=== PATIENT | female | born 1945 | race Caucasian/White ===

== ENCOUNTER → 2016-04-04 | Outpatient (CLI) | payer MEDICARE, OTHER ==
[~2016-04-04] MED LIST: CYCL5TAB PO; HYDR-3812 PO; PANT40VI7 IV; PRD20T PO
--- NOTE | 2016-04-05 09:17 | ECHOCARDIOGRAPHY REPORT ---
PROCEDURE PHYSICIAN: MT ADAM DATE OF PROCEDURE: 04/04/2016 TWO DIMENSIONAL ECHOCARDIOGRAM REPORT PRIMARY PHYSICIAN: OTHER PHYSICIAN: REFERRING PHYSICIAN: Dr. Ibrahim ORDERING PHYSICIAN: INDICATION FOR THE PROCEDURE: AV block, hypertension MEASUREMENTS DERIVED VALUES LV DIAMETER (LAX) NORMALS NORMALS Diastolic 3.8 (3.6-5.2) Eject. Fract. 60% (60%+/-6%) Systolic (2.3-3.9) Diastolic Vol. % Shortening (0.22-0.42) Systolic Vol. Aortic Root IVS THICKNESS Diastolic 0.8 (0.6-1.1) LVPW THICKNESS Diastolic 0.8 (0.6-1.1) LA DIAMETER Systolic 2.6 (2.1-3.7) FINDINGS: 1. Technical quality is good. 2. The left ventricle is normal in size with normal contractility. Systolic function appeared to be normal. Estimated ejection fraction 60%. 3. The left atrium is normal in size. No clot or thrombus were seen within the left atrium. 4. The right atrium and right ventricle are normal in size. No clot or thrombus were seen within the right side. 5. Mitral valve is normal in morphology with mild mitral regurgitation noted by color Doppler flow. No mitral valve prolapse. No mitral valve stenosis. 6. Aortic valve is trileaflet with normal opening and closing pattern. No significant aortic stenosis or regurgitation was seen. 7. Tricuspid valve is normal in morphology with mild tricuspid regurgitation noted by color Doppler flow. Doppler across tricuspid valve estimated pulmonary artery pressure of 24+ right atrial pressure. 8. Pulmonic valve is functioning normally. 9. No pericardial effusion. CONCLUSION: 1. Normal left ventricular size and systolic function. Estimated ejection fraction is 60%. 2. Mild mitral and tricuspid regurgitation. 3. Estimated pulmonary artery pressure of 30 mmHg. Job ID: [id number] Dictated Date: 04/04/2016 17:14:23 Legal Counsel Date: 04/05/2016 09:12:58 / kamilah
== END ==
LOC: CARD 13:02
PROVIDERS: ATTEND Internal Medicine Cardiovascular Disease
DX: I44.0 Atrioventricular block, first degree (principal); E78.2 Mixed hyperlipidemia
CPT/HCPCS: 93306

== ENCOUNTER → 2016-08-25 | Outpatient (CLI) | payer MEDICARE, OTHER ==
--- NOTE | 2016-08-28 14:02 | Diagnostic Imaging Report ---
Bilateral screening mammogram. The current study was also evaluated with a Computer Aided Detection (CAD) system. INDICATION: Screening. No current complaints stated on the questionnaire. COMPARISON: 08/19/2015. FINDINGS: The breasts are composed of heterogeneously dense parenchyma which may decrease mammographic sensitivity. There are benign-appearing calcifications. Allowing for technique and positional differences, no suspicious change is seen. IMPRESSION: No significant change. ACR BI-RADS Category 2: Benign findings. Result letter will be mailed to the patient. Note: At least 10% of breast cancer is not imaged by mammography. Dictated by: Dictated on workstation # [id number]
== END ==
LOC: RAD 10:12
PROVIDERS: ATTEND Nurse Practitioner Family
DX: Z12.31 Encounter for screening mammogram for malignant neoplasm of breast (principal)
CPT/HCPCS: 77067

== ENCOUNTER → 2017-02-20 | Outpatient (CLI) | payer MEDICARE, OTHER ==
[~2017-02-20] MED LIST changes: +IOHEXOL 350 MG/ML 100 ML (OMNIPAQUE 350) VIAL IV ONE; +NS 100 ML (IVPB) BAG IV ONE
--- NOTE | 2017-02-20 10:01 | Diagnostic Imaging Report ---
PROCEDURE: CT head with and without contrast. TECHNIQUE: Multiple contiguous axial images were obtained through the brain before and after the administration of intravenous contrast. INDICATION: Astrocytoma. Ventricular shunt. COMPARISON: CT head without and with IV contrast 02/10/2013. FINDINGS: There is a right frontal ventricular shunt which crosses midline with the tip in the anterior left lateral ventricle, near the foramen of Monro. This is stable compared to the 2012 examination. There are postoperative findings of a suboccipital craniotomy. Mild generalized cerebral and cerebellar parenchymal volume loss. No CT evidence of acute infarction. No intracranial hemorrhage, mass effect, hydrocephalus or extra axial fluid collections. No abnormal intracranial enhancement. No acute osseous findings. The visualized paranasal sinuses and mastoids are clear. IMPRESSION: 1. Stable exam including a right frontal ventriculoperitoneal shunt. 2. No acute intracranial CT findings. No abnormal intracranial enhancement. Dictated by: Dictated on workstation # [id number]
== END ==
LOC: RAD 08:33
PROVIDERS: ATTEND Nurse Practitioner Family
DX: Z09 Encounter for follow-up examination after completed treatment for conditions other than malignant neoplasm (principal); Z98.2 Presence of cerebrospinal fluid drainage device; Z86.011 Personal history of benign neoplasm of the brain
CPT/HCPCS: 70470

== ENCOUNTER → 2017-08-21 | Outpatient (CLI) | payer MEDICARE, OTHER ==
[~2017-08-21] MED LIST changes: +ACHD5005 PO; +GADOBUTROL 7.5 MMOL/7.5 ML (GADAVIST) VIAL IV ONE; -HYDR-3812 PO; -IOHEXOL 350 MG/ML 100 ML (OMNIPAQUE 350) VIAL IV ONE; -NS 100 ML (IVPB) BAG IV ONE
[2017-08-21 09:29] LABS: BUN/CREATININE RATIO 18; GFR ESTIMATED > 60
--- NOTE | 2017-08-21 20:01 | Diagnostic Imaging Report ---
PROCEDURE: MR imaging of the brain with and without contrast. INDICATION: Status post teeth cleaning on 07/12/2017. Left-sided mouth and facial pain with left-sided neck pain and posterior headache since. History of prior brain tumor and resection in 1984. TECHNIQUE: Multiplanar, multisequence MR imaging of the brain was performed with and without contrast. CORRELATION STUDY: CT head 02/20/2017. FINDINGS: A right frontal shunt tube is present coursing through the anterior horn of the right lateral ventricle just across midline. The ventricular system is decompressed. Metallic artifact likely owing to the shunt tubing over the right frontoparietal region is present. Surgical changes of apparent occipital craniotomy are noted. There are scattered areas of hyperintense T2 signal change. This is most pronounced at the left frontoparietal and extending into the posterolateral temporal lobe, predominantly in the white matter with sparing of the cortex. This likely corresponds to a previously noted low attenuating area on CT imaging. Additional area of signal change along the right frontal shunt tube is likely gliosis. There are no restricted areas of diffusion to suggest acute ischemia. No midline shift. Postcontrast imaging demonstrates no abnormal areas of intracranial enhancement. Craniocervical junction and midline structures including sella appear unremarkable. Normal expected intracranial flow voids. IMPRESSION: 1. Negative for acute intracranial abnormality. No evidence for acute ischemia. 2. Right frontal shunt tube present with the ventricular system decompressed and slit like. 3. Postop changes of a suboccipital craniotomy. 4. Asymmetric T2 signal change in the left frontal, parietal, and temporal region appearing likely generally stable. Dictated by: Dictated on workstation # [id number]
== END ==
LOC: RAD 08:36
PROVIDERS: ATTEND Nurse Practitioner Family
DX: R51 Headache (principal); Z98.2 Presence of cerebrospinal fluid drainage device; Z85.841 Personal history of malignant neoplasm of brain
CPT/HCPCS: 36415; 70553; 82565; 84520

== ENCOUNTER → 2018-04-23 | Outpatient (CLI) | payer MEDICARE, OTHER ==
--- NOTE | 2018-04-23 13:25 | Diagnostic Imaging Report ---
INDICATION: Routine screening. COMPARISON: 08/25/2016 and 08/19/2015. TECHNIQUE: 2D and 3D bilateral screening mammography was performed with CAD. FINDINGS: Both breasts remain heterogeneously dense, limiting the sensitivity of mammography. The parenchymal pattern is stable. Occasional benign calcifications are noted. No mass or malignant appearing microcalcifications are seen. The axillae are unremarkable. IMPRESSION: No mammographic features suspicious for malignancy are identified. ACR BI-RADS Category 2: Benign findings. Result letter will be mailed to the patient. Note: At least 10% of breast cancer is not imaged by mammography. Dictated by: Dictated on workstation # [id number]
== END ==
LOC: RAD 09:39
PROVIDERS: ATTEND Family Medicine
DX: Z12.31 Encounter for screening mammogram for malignant neoplasm of breast (principal)
CPT/HCPCS: 77067

== ENCOUNTER → 2018-07-09 | Outpatient (CLI) | payer MEDICARE, OTHER ==
[~2018-07-09] MED LIST changes: -GADOBUTROL 7.5 MMOL/7.5 ML (GADAVIST) VIAL IV ONE
--- NOTE | 2018-07-09 13:39 | Diagnostic Imaging Report ---
INDICATION: Screening for osteoporosis. COMPARISON: None. FINDINGS: The bone density of hips and spine was measured. There are no prior studies available for comparison. The T-score for the spine is -1.4. This does indicate osteopenia. The total T-score for the left hip is -2.1 and for the right hip -2.0. The T-score for the right femoral neck is -2.2. These values do indicate severe osteopenia. The T-score for the left femoral head and neck is -2.5. This does indicate borderline osteoporosis. AP Spine L1-L4: [BMD (g/cm2): 1.029] [T-Score: -1.4] [Z-Score: 0.7] [BMD Previous: 1.220] [BMD % Change: -15.7] LT Hip Neck: [BMD (g/cm2): 0.685] [T-Score: -2.5] [Z-Score: -0.5] LT Hip Total: [BMD (g/cm2):0.739] [T-Score:-2.1] [Z-Score: -0.3] [BMD Previous: 0.956] [BMD % Change: -22.7] RT Hip Neck: [BMD (g/cm2):0.736] [T-Score:-2.2] [Z-Score:-0.1] RT Hip Total: [BMD (g/cm2):0.750] [T-score:-2.0] [Z-Score:-0.2] [BMD Previous:0.944] [BMD % Change:-20.6] *Indicates significant change from prior examination based on 95% confidence level. World Health Organization criteria for BMD interpretation classify patients as Normal (T-score at or above -1.0), Osteopenic (T-score between -1.0 and -2.5) or Osteoporotic (T-score at or below -2.5). LIMITATIONS AND MODIFICATION: None. FRACTURE RISK (FRAX SCORE): The ten year probability of (%): Major Osteoporotic Fracture: [20.4] Hip Fracture: [6.2] IMPRESSION: 1. There is osteopenia of the spine and severe osteopenia of the hips. 2. There is also borderline osteoporosis of the left femoral neck. 3. See below National Osteoporosis Foundation guidelines on when to potentially initiate pharmacologic therapy. Based on the National Osteoporosis Foundation Guidelines, pharmacologic treatment should be initiated in any of the following, unless clinical conditions suggest otherwise: * Any patient with prior fragility fracture of the hip or vertebrae. A spine fracture indicates 5X risk for subsequent spine fracture and 2X risk for subsequent hip fracture. * Osteoporosis (T-score <-2.5). * Postmenopausal women and men age 50 and older with low bone mass/osteopenia (T-score between -1.0 and -2.5) by DXA and 10-year major osteoporotic fracture greater than 20% or a 10-year probability of hip fracture greater than 3%. These fracture risks are supplied above in the FRAX score, if applicable. * Clinician judgement and/or patient preferences may indicate treatment for people with 10-year fracture probabilities above or below these levels. Dictated by: Dictated on workstation # [id number]
== END ==
LOC: RAD 11:35
PROVIDERS: ATTEND Nurse Practitioner Primary Care
DX: M85.88 Other specified disorders of bone density and structure, other site (principal); Z13.820 Encounter for screening for osteoporosis; Z78.0 Asymptomatic menopausal state
CPT/HCPCS: 77080

== ENCOUNTER → 2019-04-24 | Outpatient (CLI) | payer MEDICARE, OTHER ==
--- NOTE | 2019-04-25 13:09 | Diagnostic Imaging Report ---
EXAM: Digital mammogram screening COMPARISON: 04/23/2018, 08/25/2016 and 08/19/2015. There are no current complaints. The fibroglandular tissue in both breasts is heterogeneously dense. This does limit the sensitivity of this exam. On the craniocaudad view of the right breast in the midportion of the breast, approximately 4 to 5 cm from the nipple, there is a 5.7 mm nodular density. This finding does seem to persist with tomographic images although it is difficult to identify with certainty on the MLO view. I would recommend that a compression view of this area be obtained in the CC projection as well as a true lateral view for further study. Ultrasound should also be performed. The left breast is unchanged. IMPRESSION: Additional mammographic views and ultrasound of the right breast would be recommended for further evaluation. ACR BI-RADS Category 0: Incomplete. (Needs additional imaging evaluation). Result letter will be mailed to the patient. Note: At least 10% of breast cancer is not imaged by mammography. Dictated by: Dictated on workstation # [id number]
== END ==
LOC: RAD 10:27
PROVIDERS: ATTEND Family Medicine
DX: Z12.31 Encounter for screening mammogram for malignant neoplasm of breast (principal)
CPT/HCPCS: 77067

== ENCOUNTER → 2019-05-07 | Outpatient (CLI) | payer MEDICARE, OTHER ==
--- NOTE | 2019-05-07 10:06 | Diagnostic Imaging Report ---
EXAMINATION: Unilateral diagnostic right mammogram with CAD. INDICATION: Abnormal screening mammogram. HISTORY: The recent screening mammogram performed on 04/24/2019 noted a 5.7 mm nodular density in the midportion of the right breast approximately 4 to 5 cm deep to the nipple. This is only visualized on the craniocaudad view. The compression view of this area shows that this density still seems to be present although it cannot be identified with certainty on the true lateral view or on the rolled views in the CC projection.. This may merely be related to fibroglandular tissue. Even so, I would recommend that ultrasound be performed for further study. IMPRESSION: Ultrasound would be recommended for further evaluation of the right breast. ACR BI-RADS Category 0: Incomplete. (Needs additional imaging evaluation). Result letter will be mailed to the patient. Note: At least 10% of breast cancer is not imaged by mammography. Dictated by: Dictated on workstation # [id number]
--- NOTE | 2019-05-07 10:14 | Diagnostic Imaging Report ---
EXAMINATION: Ultrasound right breast limited. FINDINGS: The diagnostic mammogram performed earlier today noted a small area of increased density in the midportion of the right breast. On this exam, there is a small 9 x 2 mm avascular hypoechoic area in the 11 o'clock position of the right breast 4 cm from the nipple. I am not certain if this finding corresponds to the density seen on the mammogram. This hypoechoic area is of uncertain etiology although most likely related to a benign process such as a duct or perhaps a small slightly complicated cyst. There are no solid masses to suggest malignancy. IMPRESSION: The small hypoechoic area in the 11 o'clock position of the right breast is of uncertain etiology although most likely benign. There is no evidence for malignancy. It may prove worthwhile, however, to have a short-term (6 month) followup mammogram and ultrasound exam of the right breast for continued evaluation. ACR BI-RADS Category 3: Probably benign findings. Dictated by: Dictated on workstation # [id number]
== END ==
LOC: RAD 08:32
PROVIDERS: ATTEND Nurse Practitioner Family
DX: R92.2 Inconclusive mammogram (principal)

== ENCOUNTER → 2019-12-08 | Outpatient (CLI) | payer MEDICARE, OTHER ==
--- NOTE | 2019-12-08 13:20 | Diagnostic Imaging Report ---
INDICATION: Six-month followup right breast density. Patient also complains of right breast tenderness today. Correlation is made with prior mammogram 05/07/2019, 04/24/2019 and 04/23/2018. Unilateral right 2-D and 3-D diagnostic mammography was performed with CAD. Right breast remains heterogeneous dense. Area of density in the central right breast CC view appears stable. No new mass or malignant appearing microcalcifications are seen. Right axilla is unremarkable. IMPRESSION: BI-RADS Category 0 Stable right mammogram. Even so, direct sonographic interrogation of the 11 o'clock location right breast is recommended and will be performed today. In addition, area of tenderness in the right breast will be evaluated with ultrasound. ACR BI-RADS Category 0: Incomplete. (Needs additional imaging evaluation). Result letter will be mailed to the patient. Note: At least 10% of breast cancer is not imaged by mammography. Dictated by: Dictated on workstation # [id number]
--- NOTE | 2019-12-08 15:06 | Diagnostic Imaging Report ---
INDICATION: Six-month followup of right breast nodule. Patient also describes pain in the lateral right breast. COMPARISON: Correlation is made with the diagnostic mammogram performed earlier this same day as well as prior right breast ultrasound from 05/07/2019. FINDINGS: Sonographic interrogation of the area of pain in the lateral right breast was performed. No sonographic abnormality is seen. In addition, the 11 o'clock location was evaluated. The previously noted questionable nodule at this location is not appreciated on today's exam. IMPRESSION: No sonographic abnormality is identified. Even so, a followup right mammogram in 6 months is recommended to show continued stability of central nodularity on the CC view. ACR BI-RADS Category 3: Probably benign findings. Dictated by: Dictated on workstation # [id number]
== END ==
LOC: RAD 12:59
PROVIDERS: ATTEND Family Medicine
DX: N63.10 Unspecified lump in the right breast, unspecified quadrant (principal)
CPT/HCPCS: 76642; 77065; G0279

== ENCOUNTER → 2020-07-09 | Outpatient (CLI) | payer MEDICARE, OTHER ==
--- NOTE | 2020-07-09 13:39 | Diagnostic Imaging Report ---
INDICATION: Six-month follow-up right breast density. CORRELATION is made prior mammograms dating back to 2019. 2-D and 3-D bilateral diagnostic mammography was performed with CAD. Both breasts remain heterogeneously dense, limiting the sensitivity of mammography. The density noted in the central right breast on the CC view on prior exams is much less prominent on today's study and most likely represents superimposed tissue. No mass or malignant appearing microcalcifications are seen. There are benign calculus locations present. Axillae are unremarkable. IMPRESSION: BI-RADS Category 2 No mammographic features suspicious for malignancy are identified. The right breast density previously seen is less prominent on today's study and most likely represents superimposed tissue. Follow-up bilateral screening mammography is recommended. ACR BI-RADS Category 2: Benign findings. Result letter will be mailed to the patient. Note: At least 10% of breast cancer is not imaged by mammography. Dictated by: Dictated on workstation # [id number]
== END ==
LOC: RAD 12:33
PROVIDERS: ATTEND Family Medicine
DX: N63.10 Unspecified lump in the right breast, unspecified quadrant (principal); N63.20 Unspecified lump in the left breast, unspecified quadrant
CPT/HCPCS: 77066; G0279; 77062

== ENCOUNTER → 2021-01-19 | Outpatient (CLI) | payer MEDICARE ==
--- NOTE | 2021-01-19 15:34 | Diagnostic Imaging Report ---
INDICATION: Back pain. Knee pain. COMPARISON: None. FINDINGS: Three views of the right knee joint demonstrate no acute fracture or dislocation. No focal osseous lesions are seen. No significant joint effusion is seen. The surrounding soft tissue structures are unremarkable. There are no radiopaque foreign bodies. IMPRESSION: No acute fractures or dislocations of the right knee joint. Dictated by: Dictated on workstation # [id number]
--- NOTE | 2021-01-19 15:35 | Diagnostic Imaging Report ---
INDICATION: Lower back pain. COMPARISON: None. FINDINGS: Frontal and lateral radiographic views of the lumbar spine were obtained. Evaluation of the static alignment shows mild to moderate reverse S-shaped scoliotic deformity of the lower thoracic and lumbar spine. The AP static alignment is preserved. There is no evidence of jumped facets. The vertebral body heights appear maintained as well. There is no convincing evidence of an acute fracture. Moderate multilevel degenerative changes are present consisting of intervertebral disc height loss with endplate sclerotic change and multilevel facet arthropathy. The included small bowel loops are nondistended. IMPRESSION: 1. No acute fracture or dislocation in the lumbar spine. 2. Scoliotic deformity with moderate multilevel degenerative changes. Dictated by: Dictated on workstation # [id number]
== END ==
LOC: RAD 14:08
PROVIDERS: ATTEND Family Medicine
DX: M47.26 Other spondylosis with radiculopathy, lumbar region (principal); M41.86 Other forms of scoliosis, lumbar region; M25.561 Pain in right knee
CPT/HCPCS: 72100; 73562

== ENCOUNTER 2021-03-02 13:40 | Outpatient (RCR) | payer MEDICARE | END 2021-03-04 | disposition home or self-care (01) | PROVIDERS: ATTEND Family Medicine | DX: M54.16 Radiculopathy, lumbar region (principal) ==

== ENCOUNTER 2021-03-31 08:57 | Outpatient (RCR) | payer MEDICARE | END 2021-04-04 | disposition home or self-care (01) | PROVIDERS: ATTEND Family Medicine | DX: M54.16 Radiculopathy, lumbar region (principal) ==

== ENCOUNTER → 2021-05-23 | Outpatient (CLI) | payer MEDICARE ==
[~2021-05-23] MED LIST changes: +CATHETER FLUSH 10 ML SYR IV PRN; +HOLD METFORMIN - RECEIVED CONTRAST 20 ML VIAL IV SCH; +IOHEXOL 350 MG/ML 100 ML (OMNIPAQUE 350) VIAL IV ONE; +NS 100 ML (IVPB) BAG IV ONE
--- NOTE | 2021-05-23 13:45 | Diagnostic Imaging Report ---
CLINICAL INDICATION: Patient has cephalgia and brain shunt. Patient has vision changes and had shunt placed in 1984 and there is a 2nd shunt. 2 1/2 months ago patient hit side of head. EXAM: Axial CT scan of the brain performed without IV contrast with sagittal and coronal reformatted images. Auto Exposure Controls were utilized during the CT exam to meet ALARA standards for radiation dose reduction. COMPARISON: MRI of the brain with and without contrast dated 08/21/[address] with and without contrast dated 02/20/2017. FINDINGS: Again seen ventricular shunt entering the right frontal region with tip crossing midline overlying the anterior aspect of left lateral ventricle. Ventricles are slitlike and are stable compared to the prior MRI of the brain. Stable small amount of low-density white matter changes adjacent to the shunt in the right frontal region. Old ventricular shunt tract craniotomy involving the right posterior aspect of the skull noted. There is small amount of curvilinear low density in the area of the right parietal lobe. There is no significant change to the confluence small amount of high T2 signal involving the subcortical and deep white matter of the posterior lateral left frontal lobe, left parietal lobe, and left temporal lobe region. There is no enhancing mass seen in the region. Occipital craniectomy changes with cranioplasty noted. There is no interval CT evidence of acute cerebral infarct, intracranial hemorrhage, brain herniation and midline shift. Basal cisterns are unremarkable. There is cranial soft tissue, skull, and orbits are unremarkable. Paranasal sinuses and mastoid air cells are clear. IMPRESSION: 1: Overall stable CT scan of the brain with no interval acute intracranial process. 2: Stable ventricular shunt entering the right frontal aspect of the brain with stable ventricle sizes and no evidence of interval hydrocephaly. 3.: Stable nonspecific small confluent area of high T2 signal involving the lateral left frontal, parietal, and temporal lobe region. 4: There are other postoperative changes which is not significantly changed, as described above. Dictated by: Dictated on workstation # [id number]
== END ==
LOC: RAD 13:15
PROVIDERS: ATTEND Family Medicine
DX: R51.9 Headache, unspecified (principal); H53.9 Unspecified visual disturbance; Z98.2 Presence of cerebrospinal fluid drainage device; Z98.890 Other specified postprocedural states
CPT/HCPCS: 70470

== ENCOUNTER → 2021-06-06 | Outpatient (CLI) | payer MEDICARE, OTHER ==
[~2021-06-06] MED LIST changes: -CATHETER FLUSH 10 ML SYR IV PRN; -HOLD METFORMIN - RECEIVED CONTRAST 20 ML VIAL IV SCH; -IOHEXOL 350 MG/ML 100 ML (OMNIPAQUE 350) VIAL IV ONE; -NS 100 ML (IVPB) BAG IV ONE
== END ==
LOC: CARD 10:30
PROVIDERS: ATTEND Physician Assistant
DX: I10 Essential (primary) hypertension (principal); I25.10 Atherosclerotic heart disease of native coronary artery without angina pectoris
CPT/HCPCS: 93306

== ENCOUNTER → 2021-07-29 | Outpatient (CLI) | payer MEDICARE, OTHER ==
--- NOTE | 2021-07-29 13:11 | Diagnostic Imaging Report ---
INDICATION: Routine screening. Comparison is made with prior mammogram 07/09/2020 and 04/24/2019. 2-D and 3-D bilateral screening mammography was performed with CAD. Both breasts are heterogeneously dense, limiting the sensitivity of mammography. The parenchymal pattern is stable. No mass or malignant-appearing microcalcifications are seen. There are occasional benign calcifications noted. The axillae are unremarkable. IMPRESSION: No mammographic features suspicious for malignancy are identified. ACR BI-RADS Category 2: Benign findings. Result letter will be mailed to the patient. Note: At least 10% of breast cancer is not imaged by mammography. BI-RADS Category 2 Dictated by: Dictated on workstation # [id number]
== END ==
LOC: RAD 11:00
PROVIDERS: ATTEND Family Medicine
DX: Z12.31 Encounter for screening mammogram for malignant neoplasm of breast (principal)
CPT/HCPCS: 77063; 77067

== ENCOUNTER → 2022-08-07 | Outpatient (CLI) | payer MEDICARE ==
--- NOTE | 2022-08-07 10:34 | Diagnostic Imaging Report ---
MRI LT UPPER EXT JOINT W/O Technique: Multiplanar, multisequence MR imaging of the left shoulder was performed without contrast. Comparison: None available. Indication: Left shoulder pain. Humeral fracture one month ago. Findings: Rotator cuff: The supraspinatus has a partial-thickness tear at its posterior aspect. Infraspinatus is intact upon a fragment of the greater tuberosity that has been fractured and elevated approximately 5 mm. The teres minor and subscapularis remain intact. No rotator cuff muscle atrophy. Glenoid labrum: No chondrolabral separation or paralabral cyst. Linear signal in the posterior aspect of the labrum may represent degenerative tearing. Long head of biceps: Long head of biceps is normally positioned within the bicipital groove. The intracapsular segment is intact. Bones and cartilage: Mildly impacted surgical neck fracture of the humerus has surrounding bone marrow edema. The fracture also involves the base of the greater tuberosity which is mildly elevated. No glenohumeral chondromalacia. The acromioclavicular joint is normal in alignment without significant degenerative change. Soft tissues: No glenohumeral joint effusion. No MRI findings to suggest adhesive capsulitis. Fluid is present in the subacromial and subdeltoid bursa. IMPRESSION: 1. Partial-thickness tear of the supraspinatus at its posterior insertion. 2. Infraspinatus is intact but inserts upon a fracture fragment of the greater tuberosity that is elevated approximately 5 mm. 3. Subacute proximal humeral fracture involves the surgical neck and greater tuberosity. Dictated by: Dictated on workstation # [id number]
== END ==
LOC: RAD 07:38
PROVIDERS: ATTEND Nurse Practitioner
DX: M75.112 Incomplete rotator cuff tear or rupture of left shoulder, not specified as traumatic (principal); S42.202A Unspecified fracture of upper end of left humerus, initial encounter for closed fracture; X58.XXXA Exposure to other specified factors, initial encounter
CPT/HCPCS: 73221

== ENCOUNTER 2022-08-23 16:40 | Emergency (ER) | payer MEDICARE ==
[~2022-08-23] VITALS: Ht 170 cm; Wt 51.7 kg
[2022-08-23] MEDS ORDERED: NS IV 1000 ML 1,000 ML IV STA ×2 (17:15→20:55)
[2022-08-23] MEDS ORDERED: ONDANSETRON 4 MG/2 ML (SDV) Z0FRAN IVP ONE (17:15)
--- NOTE | 2022-08-23 17:15 | ED General ---
General Chief Complaint: General Problems/Pain Stated Complaint: CONFUSION|UPSET STOMACH Nursing Triage Note: c/o increased confusion, shakyness, and nausea. started this afternoon. (GIOVANNI DIAZ DO) History of Present Illness Date Seen by Provider: Aug 23, 2022 Time Seen by Provider: 17:03 Initial Comments 76-year-old female presents with some severe nausea but no vomiting. Bit shaky. Patient has history of a brain tumor and has a shunt. Patient brought in by family friend. He reports that when she awoke from a nap she is currently confused but that has seemed to resolved now. No reports of fever or chills. (GIOVANNI DIAZ DO) Allergies and Home Medications Allergies Coded Allergies: No Known Drug Allergies (Unverified , 01/09/14) Patient Home Medication List Home Medication List Reviewed: Yes (GIOVANNI DIAZ DO) Cyclobenzaprine HCl (Cyclobenzaprine HCl) 5 Mg Tablet, 5 MG PO Q6H Prescribed by: ABBE FOX on 06/09/15 0408 Hydrocodone Bit/Acetaminophen (Lortab 5 Mg Tablet) 1 Each Tablet, 1-2 EACH PO Q6H PRN for PAIN Prescribed by: ABBE FOX on 06/09/15 0408 Pantoprazole Sodium (Pantoprazole Sodium) 40 Mg Vial, 40 MG IV DAILY Prescribed by: SHANTE ESCOBEDO on 01/09/14 0939 Prednisone (Prednisone) 20 Mg Tab, 40 MG PO DAILY Prescribed by: ABBE FOX on 06/09/15 0408 Review of Systems Review of Systems Constitutional: No chills, No fever; malaise Respiratory: no symptoms reported Cardiovascular: no symptoms reported Gastrointestinal: No abdominal pain; nausea; No vomiting Musculoskeletal: no symptoms reported Skin: no symptoms reported (GIOVANNI DIAZ DO) Past Kgixnvl-Uukaxw-Ckukuj Hx Patient Social History Use of E-Cig and/or Vaping dev: No Substance use?: No Pt feels they are or have been: No (GIOVANNI DIAZ DO) Immunizations Up To Date Influenza Vaccine Up-to-Date: No; Not Current First/Initial COVID19 Vaccinat: "3 shots" (GIOVANNI DIAZ DO) Past Medical History Surgery/Hospitalization HX: denies shunt in brain, hysterectomy Brain Shunt, Eye Surgery, Hysterectomy Brain Tumor (DIAZ,GIOVANNI L DO) Family Medical History No Pertinent Family Hx (DIAZ,GIOVANNI L DO) Physical Exam Vital Signs Vital Signs - First Documented 08/23/22 08/23/22 16:40 23:39 Temp 36.6 Pulse 77 Resp 18 B/P (MAP) 111/64 (80) Pulse Ox 96 O2 Delivery Room Air O2 Flow Rate 2.00 (FLAQUITO PARIKH MD) Vital Signs Capillary Refill : Less Than 3 Seconds (DIAZ,GIOVANNI L DO) Height, Weight, BMI Height: 5'7" Weight: 120lbs. oz. 54.147089uw; 17.00 BMI Method:Stated General Appearance: No Apparent Distress, WD/WN HEENT: PERRL/EOMI Respiratory: Lungs Clear, Normal Breath Sounds Cardiovascular: Regular Rate, Rhythm, No Edema Neurologic/Psychiatric: Alert, Oriented x3, No Motor/Sensory Deficits, Normal Mood/Affect Skin: Normal Color, Warm/Dry (DIAZ,GIOVANNI L DO) Progress/Results/Core Measures Suspected Sepsis SIRS Temperature: Pulse: 77 Respiratory Rate: 18 Blood Pressure 111 /64 Mean: 80 (DIAZ,GIOVANNI L DO) Results/Orders Lab Results Laboratory Tests Test 08/23/22 17:00 08/23/22 18:42 Range/Units White Blood Count 6.2 4.3-11.0 10^3/uL Red Blood Count 4.54 3.80-5.11 10^6/uL Hemoglobin 13.9 11.5-16.0 g/dL Hematocrit 42 35-52 % Mean Corpuscular Volume 92 80-99 fL Mean Corpuscular Hemoglobin 31 25-34 pg Mean Corpuscular Hemoglobin Concent 33 32-36 g/dL Red Cell Distribution Width 11.7 10.0-14.5 % Platelet Count 239 130-400 10^3/uL Mean Platelet Volume 10.5 9.0-12.2 fL Immature Granulocyte % (Auto) 0 % Neutrophils (%) (Auto) 62 42-75 % Lymphocytes (%) (Auto) 29 12-44 % Monocytes (%) (Auto) 7 0-12 % Eosinophils (%) (Auto) 2 0-10 % Basophils (%) (Auto) 0 0-10 % Neutrophils # (Auto) 3.8 1.8-7.8 10^3/uL Lymphocytes # (Auto) 1.8 1.0-4.0 10^3/uL Monocytes # (Auto) 0.4 0.0-1.0 10^3/uL Eosinophils # (Auto) 0.1 0.0-0.3 10^3/uL Basophils # (Auto) 0.0 0.0-0.1 10^3/uL Immature Granulocyte # (Auto) 0.0 0.0-0.1 10^3/uL Sodium Level 137 135-145 MMOL/L Potassium Level 3.7 3.6-5.0 MMOL/L Chloride Level 104 98-107 MMOL/L Carbon Dioxide Level 25 21-32 MMOL/L Anion Gap 8 5-14 MMOL/L Blood Urea Nitrogen 16 7-18 MG/DL Creatinine 0.68 0.60-1.30 MG/DL Estimat Glomerular Filtration Rate 90 BUN/Creatinine Ratio 24 Glucose Level 121 H 70-105 MG/DL Calcium Level 9.0 8.5-10.1 MG/DL Corrected Calcium 8.8 8.5-10.1 MG/DL Magnesium Level 2.1 1.6-2.4 MG/DL Total Bilirubin 0.2 0.1-1.0 MG/DL Aspartate Amino Transf (AST/SGOT) 22 5-34 U/L Alanine Aminotransferase (ALT/SGPT) 14 0-55 U/L Alkaline Phosphatase 72 40-136 U/L Total Protein 6.7 6.4-8.2 GM/DL Albumin 4.2 3.2-4.5 GM/DL Urine Color YELLOW Urine Clarity SL CLOUDY Urine pH 7.0 5-9 Urine Specific [place] 1.020 1.016-1.022 Urine Protein NEGATIVE NEGATIVE Urine Glucose (UA) NEGATIVE NEGATIVE Urine Ketones NEGATIVE NEGATIVE Urine Nitrite NEGATIVE NEGATIVE Urine Bilirubin NEGATIVE NEGATIVE Urine Urobilinogen 0.2 < = 1.0 MG/DL Urine Leukocyte Esterase NEGATIVE NEGATIVE Urine RBC (Auto) NEGATIVE NEGATIVE Urine RBC NONE /HPF Urine WBC NONE /HPF Urine Crystals PRESENT H /LPF Urine Amorphous Sediment MOD JASON URATES H /LPF Urine Bacteria NEGATIVE /HPF Urine Casts NONE /LPF Urine Mucus NEGATIVE /LPF Urine Culture Indicated NO (FLAQUITO PARIKH MD) My Orders Orders - FLAQUITO PARIKH MD Promethazine Injection (Phenergan Injec (08/23/22 18:30) Dexamethasone Injection (Decadron Inje (08/23/22 20:55) Levetiracetam 1000 Mg/Ns 100ml (Keppra I (08/23/22 20:55) Ns Iv 1000 Ml (Sodium Chloride 0.9%) (08/23/22 20:55) Ct Angio Head/Neck (08/23/22 20:55) Lorazepam Injection (Ativan Injection) (08/23/22 23:01) (FLAQUITO PARIKH MD) Medications Given in ED Current Medications Medications Dose Ordered Sig/Any Route Start Time Stop Time Status Last Admin Dose Admin Ondansetron HCl 4 mg ONCE ONCE IVP 08/23/22 17:15 08/23/22 17:17 DC 08/23/22 17:24 4 MG Promethazine HCl 12.5 mg ONCE ONCE IVP 08/23/22 18:30 08/23/22 18:31 DC 08/23/22 18:37 12.5 MG (FLAQUITO PARIKH MD) Vital Signs/I&O 08/23/22 08/23/22 16:40 23:39 Temp 36.6 Pulse 77 127 Resp 18 20 B/P (MAP) 111/64 (80) 117/94 Pulse Ox 96 97 O2 Delivery Room Air Nasal Cannula O2 Flow Rate 2.00 (FLAQUITO PARIKH MD) Vital Signs/I&O Capillary Refill : Less Than 3 Seconds (GIOVANNI DIAZ DO) Blood Pressure Mean: 80 Progress Note #1: Time: 18:47 Progress Note Care assumed at shift change from Dr Diaz. CT read per radiologist just returned. UA still pending results. Will discuss CT findings (new mass noted) with family. Progress Note #2: Time: 20:42 Progress Note Patient seen and evaluated by me. Very somnolent post Phenergan injection. She is arousable to light sternal rub. She will say her name and date of . She is slightly tachycardic heart rate of 110 with normal blood pressure. I have reviewed her labs, CBC, chemistry, urinalysis, chest x-ray. I have reviewed the radiology read on her CT which demonstrates new brain mass 2 x 1.9 x 1.9 cm at approximately the foramen of Louis. I have discussed findings and plan of care with her friend who is at the bedside. He tells me that she has family in [place] as well as in [place]. He states up until today she had been at normal functional status, very active he states they went on a 2 mile walk yesterday. He states today she just became very very confused. She did have nausea. She has previously had her brain surgery and shunt placed at "[facility]" in [place]. She has not had routine neurosurgical follow-up. Her friend at the bedside also tells me that she does not take any prescribed daily medications. I discussed the case with [facility], they discussed with the neurosurgeon on-call who instructed the patient to be transferred to the emergency department at [facility]. Dr. Jones will be the accepting physic sandra in the emergency department per [facility] direct call. Progress Note #3: Time: 22:59 Progress Note notified by nursing staff Bina has been acutely agitated. She attempted to get out of bed, got her legs stuck in the bed rails. Saying "let me up. let me get up". Speaking with her eyes closed. Unable to be re-directed. Will not answer direct questions. Will not follow commands. Pulled out her IV. For patient safety I elected to give her a little ativan to calm her down. Will give her 1mg ativan IM. (FLAQUITO PARIKH MD) Diagnostic Imaging Diagonstic Imaging: Xray Comments [facility] [place] NAME: BINA SMITH [facility] REC#: [id number] PT STATUS: REG ER : 1945 PHYSICIAN: GIOVANNI DIAZ DO ADMIT DATE: 08/23/22/ER Draft Date of Exam:08/23/22 SHUNT SERIES INDICATION: Increased confusion, shakiness and nausea starting this afternoon. History of ventriculoperitoneal shunt. TECHNIQUE: Shunt series radiographs of the head, neck, chest and abdomen. CORRELATION STUDY: None. FINDINGS: Right-sided ventricular peritoneal shunt tube is present. The shunt is of fairly thin caliber but overall appears to be intact without obvious disruption or kinking. Subtle lucency over the shunt catheter over the mid upper chest likely of no significance. The tip of the catheter is in the left pelvis. Visualized portion of the chest demonstrates no acute abnormality. There is mild/moderate stool in the colon. No obstructive feature. There is advanced degenerative changes and scoliotic curvature of the spine. IMPRESSION: Right ventricular peritoneal shunt tube without obvious disruption or kinking. Dictated on workstation # [id number] Dict: 08/23/22 1756 Trans: 08/23/22 1824 [facility] [id number] Interpreted by: GUME WEINSTEIN DO Electronically signed by: [facility] CT Comments NAME: BINA SMITH [facility] REC#: [id number] PT STATUS: REG ER : 1945 PHYSICIAN: GIOVANNI DIAZ DO ADMIT DATE: 08/23/22/ER Draft Date of Exam:08/23/22 CT HEAD WO Procedure: CT head without contrast. Technique: Multiple contiguous axial images were obtained through the brain without the use of intravenous contrast. Auto Exposure Controls were utilized during the CT exam to meet ALARA standards for radiation dose reduction. Date: August 23, 2022. Indication: 76-year-old female, altered mental status. Nausea. Comparison: CT abdomen without and with intravenous contrast May 23, 2021. MRI brain August 21, 2017. Findings: There is a right-sided BRICK PICKER shunt catheter with intact visualized shunt catheter tubing. The intracranial portion of the catheter approximates the lateral ventricles near midline. The lateral ventricles are near slitlike. The lateral ventricles are mildly increased in size since May 23, 2021. There is a round area of masslike soft tissue attenuation in the level of the foramen of Louis which measures 1.7 x 1.7 cm in size. This is new since the prior CT head exam. There are postoperative changes of the occipital skull. There is no identified abnormal extra-axial fluid collection. There is CSF-like attenuation in the left frontal lobe likely reflecting encephalomalacia. This is also present and unchanged relating to the prior study. There is no midline shift. Impression: 1. New nodular area of masslike soft tissue attenuation centered in the region of the foramen of Louis measuring 1.7 x 1.7 x 2.3 cm in size. This raises concern for potential mass at this location. Further evaluation with pre and post contrast MRI is recommended. 2. Intact visualized BRICK PICKER shunt catheter tubing. No hydrocephalus. 3. Redemonstrated findings of encephalomalacia in the left middle cerebral artery distribution. Dictated on workstation # [id number] Dict: 08/23/22 1745 Trans: 08/23/22 1844 PJE [id number] Interpreted by: EMANI LOZADA MD Electronically signed by: Diagonstic Imaging: CT Plain Films/CT/US/NM/MRI: head Comments [facility] [place] NAME: BINA SMITH [facility] REC#: [id number] PT STATUS: REG ER : 1945 PHYSICIAN: FLAQUITO PARIKH MD ADMIT DATE: 08/23/22/ER Draft Date of Exam:08/23/22 CT ANGIO HEAD/NECK PROCEDURE: CT angiography of the head and CT angiography of the neck with and without contrast. TECHNIQUE: Contiguous noncontrast images were obtained from the skull base through the vertex. After intravenous contrast administration, helical CT angiography of the neck was performed. Source data was reformatted into 3D MIP projections. Delayed post contrast acquisition was also obtained. Auto Exposure Controls were utilized during the CT exam to meet ALARA standards for radiation dose reduction. INDICATION: New onset confusion, brain mass. COMPARISON: CT head 08/23/2022. FINDINGS: CTA NECK: Aorta: Aortic arch is limited in evaluation with artifact present. Does appear relatively normal, with standard three vessel branching pattern. Right Common/Internal/External Carotid Artery: Artifact of the right common carotid artery. The common carotid artery, carotid bifurcation as well as internal and external carotid arteries appear patent. Left Common/Internal/External Carotid Artery: Artifact over the left common carotid artery. Carotid bifurcations as well as internal and external carotid arteries are patent. Vertebral arteries: Codominant. Patent and without significant stenosis. Non-vascular: Visualized lung apices with mild emphysematous change. Airway patent. Shunt tubing over the right neck. Mildly advanced multilevel cervical spondylosis. Most severe degenerative disc disease at C5-C6 with prominent osteophyte at this level as well as the C6-C7 level resulting in osseous narrowing of the foramina on the left. CTA HEAD: Anterior Circulation: The intracranial internal carotid arteries are patent. The bilateral middle cerebral arteries are patent and without stenosis. The anterior cerebral arteries are patent and without stenosis. Posterior Circulation: The bilateral intracranial segments of the vertebral arteries are patent. The basilar artery is patent and without stenosis. The posterior cerebral arteries are patent. POST CONTRAST HEAD: Again demonstration of the mass at the level the foramen of Monro. This demonstrates enhancement. There also appears to be soft tissue extension into the right lateral ventricle. There is suggested slight asymmetric low-attenuation within the posterior white matter of the left frontal and anterior parietal lobe. Sulci pattern; however, appears stable. No definitive enhancement in this area. IMPRESSION: 1. CTA neck demonstrates no evidence for large vessel occlusion with patency of the major arteries within the neck. 2. CTA [place] demonstrates no evidence for large vessel occlusion. 3. Enhancing mass centered at the foramen of Monro but extends into the right lateral ventricle. 4. Very questionable subtle low-attenuation left cerebral hemisphere compared to right without definitive discrete mass. 5. Given findings, consideration for MRI would be recommended for follow-up. Dictated on workstation # [id number] Dict: 08/23/222121 Trans: 08/23/222138 [facility] [id number] Interpreted by: GUME WEINSTEIN DO Electronically signed by: (FLAQUITO PARIKH MD) Departure Impression Primary Impression: Brain tumor Additional Impression: Confusion Disposition: 02 XFER SHT-TRM HOSP Condition: Stable Transfer Transfer Reason: Exceeds level of care Time Spoke to Accepting Phy: 20:38 Transfer Progress Notes to [facility]; accepted per Dr Bernabe (Neurosurg) Transfer Time: 00:00 Transfer Facility: [facility] Method of Transfer: EMS (FLAQUITO PARIKH MD) Departure-Patient Inst. Referrals: LOIS ARGUELLO DO (PCP/Family) Primary Care Physician Copy Copies To 1: LOIS ARGUELLO TREVOR L DO Aug 23, 2022 17:15 FLAQUITO PARIKH MD Aug 23, 2022 18:46
[2022-08-23 17:21] LABS: BASOPHILS % (AUTO) 0 % (0-10); EOSINOPHILS # (AUTO) 0.1 10^3/uL (0.0-0.3); EOSINOPHILS % (AUTO) 2 % (0-10); HEMATOCRIT 42 % (35-52); HEMOGLOBIN 13.9 g/dL (11.5-16.0); LYMPHOCYTES # (AUTO) 1.8 10^3/uL (1.0-4.0); LYMPHOCYTES % (AUTO) 29 % (12-44); MEAN CORPUSCULAR HEMOGLOBIN 31 pg (25-34); MEAN CORPUSCULAR HGB CONC 33 g/dL (32-36); MEAN CORPUSCULAR VOLUME 92 fL (80-99); MEAN PLATELET VOLUME 10.5 fL (9.0-12.2); MONOCYTES # (AUTO) 0.4 10^3/uL (0.0-1.0); MONOCYTES % (AUTO) 7 % (0-12); NEUTROPHILS # (AUTO) 3.8 10^3/uL (1.8-7.8); NEUTROPHILS % (AUTO) 62 % (42-75); PLATELET COUNT 239 10^3/uL (130-400); WHITE BLOOD COUNT 6.2 10^3/uL (4.3-11.0)
[2022-08-23 17:23] LABS: ALBUMIN 4.2 GM/DL (3.2-4.5); POTASSIUM 3.7 MMOL/L (3.6-5.0)
[2022-08-23 17:25] LABS: TOTAL PROTEIN 6.7 GM/DL (6.4-8.2)
[2022-08-23 17:27] LABS: BILIRUBIN,TOTAL 0.2 MG/DL (0.1-1.0)
[2022-08-23 17:29] LABS: CREATININE SERUM 0.68 MG/DL (0.60-1.30)
[2022-08-23 17:32] LABS: MAGNESIUM 2.1 MG/DL (1.6-2.4)
--- NOTE | 2022-08-23 18:24 | Diagnostic Imaging Report ---
INDICATION: Increased confusion, shakiness and nausea starting this afternoon. History of ventriculoperitoneal shunt. TECHNIQUE: Shunt series radiographs of the head, neck, chest and abdomen. CORRELATION STUDY: None. FINDINGS: Right-sided ventricular peritoneal shunt tube is present. The shunt is of fairly thin caliber but overall appears to be intact without obvious disruption or kinking. Subtle lucency over the shunt catheter over the mid upper chest likely of no significance. The tip of the catheter is in the left pelvis. Visualized portion of the chest demonstrates no acute abnormality. There is mild/moderate stool in the colon. No obstructive feature. There is advanced degenerative changes and scoliotic curvature of the spine. IMPRESSION: Right ventricular peritoneal shunt tube without obvious disruption or kinking. Dictated by: Dictated on workstation # [id number]
[2022-08-23] MEDS ORDERED: PROMETHAZINE INJ 25 MG/ML (PHENERGAN) AMP IVP ONE (18:30)
--- NOTE | 2022-08-23 18:45 | Diagnostic Imaging Report ---
Procedure: CT head without contrast. Technique: Multiple contiguous axial images were obtained through the brain without the use of intravenous contrast. Auto Exposure Controls were utilized during the CT exam to meet ALARA standards for radiation dose reduction. Date: August 23, 2022. Indication: 76-year-old female, altered mental status. Nausea. Comparison: CT abdomen without and with intravenous contrast May 23, 2021. MRI brain August 21, 2017. Findings: There is a right-sided PAROLE DIRECTOR shunt catheter with intact visualized shunt catheter tubing. The intracranial portion of the catheter approximates the lateral ventricles near midline. The lateral ventricles are near slitlike. The lateral ventricles are mildly increased in size since May 23, 2021. There is a round area of masslike soft tissue attenuation in the level of the foramen of Louis which measures 1.7 x 1.7 cm in size. This is new since the prior CT head exam. There are postoperative changes of the occipital skull. There is no identified abnormal extra-axial fluid collection. There is CSF-like attenuation in the left frontal lobe likely reflecting encephalomalacia. This is also present and unchanged relating to the prior study. There is no midline shift. Impression: 1. New nodular area of masslike soft tissue attenuation centered in the region of the foramen of Louis measuring 1.7 x 1.7 x 2.3 cm in size. This raises concern for potential mass at this location. Further evaluation with pre and post contrast MRI is recommended. 2. Intact visualized PAROLE DIRECTOR shunt catheter tubing. No hydrocephalus. 3. Redemonstrated findings of encephalomalacia in the left middle cerebral artery distribution. Dictated by: Dictated on workstation # [id number]
[2022-08-23 18:48] LABS: BILIRUBIN,URINE NEGATIVE (NEGATIVE); CLARITY,URINE SL CLOUDY; COLOR,URINE YELLOW; GLUCOSE, URINE (UA) NEGATIVE (NEGATIVE); KETONES,URINE NEGATIVE (NEGATIVE); LEUKOCYTE ESTERASE ,URINE NEGATIVE (NEGATIVE); NITRITE,URINE NEGATIVE (NEGATIVE); PROTEIN,URINE NEGATIVE (NEGATIVE)
[2022-08-23 18:59] LABS: AMORPHOUS SEDIMENT,UR MOD AMOR URATES /LPF; BACTERIA,URINE NEGATIVE /HPF
[2022-08-23] MEDS ORDERED: levETIRAcetam 1000 mg/NS 100ml 100 ML IV STA (20:55)
--- NOTE | 2022-08-23 21:41 | Diagnostic Imaging Report ---
PROCEDURE: CT angiography of the head and CT angiography of the neck with and without contrast. TECHNIQUE: Contiguous noncontrast images were obtained from the skull base through the vertex. After intravenous contrast administration, helical CT angiography of the neck was performed. Source data was reformatted into 3D MIP projections. Delayed post contrast acquisition was also obtained. Auto Exposure Controls were utilized during the CT exam to meet ALARA standards for radiation dose reduction. INDICATION: New onset confusion, brain mass. COMPARISON: CT head 08/23/2022. FINDINGS: CTA NECK: Aorta: Aortic arch is limited in evaluation with artifact present. Does appear relatively normal, with standard three vessel branching pattern. Right Common/Internal/External Carotid Artery: Artifact of the right common carotid artery. The common carotid artery, carotid bifurcation as well as internal and external carotid arteries appear patent. Left Common/Internal/External Carotid Artery: Artifact over the left common carotid artery. Carotid bifurcations as well as internal and external carotid arteries are patent. Vertebral arteries: Codominant. Patent and without significant stenosis. Non-vascular: Visualized lung apices with mild emphysematous change. Airway patent. Shunt tubing over the right neck. Mildly advanced multilevel cervical spondylosis. Most severe degenerative disc disease at C5-C6 with prominent osteophyte at this level as well as the C6-C7 level resulting in osseous narrowing of the foramina on the left. CTA HEAD: Anterior Circulation: The intracranial internal carotid arteries are patent. The bilateral middle cerebral arteries are patent and without stenosis. The anterior cerebral arteries are patent and without stenosis. Posterior Circulation: The bilateral intracranial segments of the vertebral arteries are patent. The basilar artery is patent and without stenosis. The posterior cerebral arteries are patent. POST CONTRAST HEAD: Again demonstration of the mass at the level the foramen of Monro. This demonstrates enhancement. There also appears to be soft tissue extension into the right lateral ventricle. There is suggested slight asymmetric low-attenuation within the posterior white matter of the left frontal and anterior parietal lobe. Sulci pattern; however, appears stable. No definitive enhancement in this area. IMPRESSION: 1. CTA neck demonstrates no evidence for large vessel occlusion with patency of the major arteries within the neck. 2. CTA [place] demonstrates no evidence for large vessel occlusion. 3. Enhancing mass centered at the foramen of [place] but extends into the right lateral ventricle. 4. Very questionable subtle low-attenuation left cerebral hemisphere compared to right without definitive discrete mass. 5. Given findings, consideration for MRI would be recommended for follow-up. Dictated by: Dictated on workstation # [id number]
[2022-08-23] MEDS ORDERED: LORazepam INJ 2 MG/ML (ATIVAN) VIAL IM STA (23:01)
[2022-08-23 23:39] VITALS: BP 117/94
[2022-08-23] MEDS ORDERED: LORazepam INJ 2 MG/ML (ATIVAN) VIAL IVP STA (23:55)
== END 2022-08-24 00:20 | disposition short-term general hospital (02) ==
LOC: EDUNIT# 16:40 → ER 16:42
DX: D49.6 Neoplasm of unspecified behavior of brain (principal); Z28.311 Partially vaccinated for COVID-19; Z98.2 Presence of cerebrospinal fluid drainage device
CPT/HCPCS: 36415; 70250; 70450; 70496; 70498; 71048; 72040; 74019; 80053; 81000; 83735; 85025

== ENCOUNTER 2022-09-28 13:50 | Outpatient (RCR) | payer MEDICARE | END 2022-10-02 | disposition home or self-care (01) | PROVIDERS: ATTEND Family Medicine | DX: G04.90 Encephalitis and encephalomyelitis, unspecified (principal); R41.0 Disorientation, unspecified ==